=== PATIENT | female | born 1985 | race Caucasian/White ===

== ENCOUNTER 2020-12-31 04:07 | Inpatient (IN) | payer OTHER ==
[2020-12-31] VITALS (21 sets, daily range): BP systolic 108–164; BP diastolic 40–85; PULSE 64–104; TEMP 97–98.7
[~2020-12-31] VITALS: Ht 165.2 cm; Wt 86.4 kg
[~2020-12-31 04:07] MED LIST: MOTRIN 600600 MG/TAB PO; PERCOCET 325 MG1 TA2 PO; PRENATAL1 TA1 PO; ZOVIRAX 200MG200 MG PO
--- NOTE | 2020-12-31 04:07 | NUR ---
0407 G6L2 39.1 WEEKS TO LR4 WITH C/O SROM AT 0100 AND MILD TO MOD CONTRACTIONS. SCHEDULED FOR A REPEAT C/SECT TOMORROW. EFM ON. ADM ASSESSMENT COMPLETED. 0435 SVE DONE WITH NO AMNIOTIC FLUID NOTED. NEG AMNIOTRACE. CERVIX POSTERIOR AND NOT DILATED. PINKISH, MUCOUSY DISCHARGE NOTED ON GLOVE AFTER EXAM. PT STATES WORN A MINI PAD IN. MINIPAD HAS QUARTER SIZE MUCOUSY PINK DISCHARGE ON IT AND TEST NEG WITH AMNIOTRACE. CONTRACTIONS NOTED EVERY 3-5 MINUTES. STATES FEELS TIGHTENING BUT ARE BEGINNING TO HAVE SOME MENSTRUAL LIKE CRAMPING WITH THEM.
[2020-12-31] MEDS ORDERED: PROBIOTIC FORMU1 CAP PO (04:24)
--- NOTE | 2020-12-31 06:00 | NUR ---
0600 LEAKS SM AMOUNT CL/PINKISH FLUID. TEST NEG ON AMNIOTRACE. SVE /-2. STATES CONTRACTIONS ARE TIGHT BUT NOT ANY HARDER AT THIS TIME. DR MEDINA NOTIFIED. ORDER TO ADMIT AND PLAN C/SECT FOR 0900.
[2020-12-31 06:50] LABS: BASO % 0.2 % (0.0-2.0); EOS % 0.2 % (0-4.0); GRAN # 9.2 (1.4-6.5); GRAN % 75.8 % (42.2-75.2); LYMPH % 16.3 % (20.0-51.0); MEAN CELL VOLUME 88 fl (80.0-100.0); MEAN CORPUSCULAR HEMOGLOBIN 29 pg (27.0-31.0); MEAN CORPUSCULAR HGB CONC 33 g/dl (33.0-37.0); MONO # 0.8 (0.1-0.6); MONO % 6.4 % (1.7-9.3); PLATELET COUNT 196 K/mm3 (130-400); RED BLOOD COUNT 4.16 M/mm3 (4.10-5.30); REDCELL DISTRIBUTION WIDTH-CV 14.3 % (11.5-14.5)
[2020-12-31 06:51] LABS: HEMATOCRIT 36.4 % (37.0-47.0)
--- NOTE | 2020-12-31 07:00 | NUR ---
PT HAVING INCREASING PAIN WITH CONTRACTIONS AND THEY ARE COMING MORE FREQUENTLY. PHONED DR MEDINA AT 0641 INFORMING HER PT IS INCREASING UNCOMFORTABLE AND THIS RN FEELS THE NEEDS TO BE MOVED UP RATHER THAN WAITING FOR THE SCHEDULED 0730 TO BE COMPLETED BEFORE ALISON HAS HER . AGREES AND IS ON HER WAY TO THE HOSPITAL. DR HERE AT 0650. PT PREPPED FOR SURGERY. IV STARTED IN LEFT HAND AND BOLUS INFUSING. AMBULATES TO OPERATING ROOM AT 0700. FHT'S WITH MODERATE VARIABILITY AND ACCELS.
--- NOTE | 2020-12-31 07:30 | NUR ---
PT AMBULATES TO OR AT 0702 WITH AND THIS RN. PT SITS ON EDGE OF BED FOR SPINAL PLACEMENT BY RIKI COLLAZO. SPINAL DONE AND PT REPOSITIONED LYING DOWN WITH BLANKET WEDGE UNDER RIGHT HIP. CHERRY PLACED. ABDOMEN PREPPED. DR MEDINA AND DR WALKER PERFORMED WITH DELIVERY OF MALE AT 0719. EXPRESSED DELIVERY OF PLACENTA AT 0720.
--- NOTE | 2020-12-31 07:55 | NUR ---
PT TO PACU AFTER DISCHARGE FROM OPERATING ROOM. AWAKE AND ALERT. DENIES PAIN. FUNDUS FIRM WITH MINIMAL BLEEDING OBSERVED. ASSESSMENT COMPLETED.
--- NOTE | 2020-12-31 08:35 | NUR ---
PT TO ROOM AFTER DISCHARGE FROM PACU. AWAKE AND ALERT. FUNDUS FIRM WITH MINIMAL BLEEDING. PT REPORTING NO PAIN AT THIS TIME. WATER GIVEN. PT HOLDING BABY. IN ROOM. PLAN OF CARE REVIEWED.
--- NOTE | 2020-12-31 18:50 | NUR ---
Report recieved. at this time. Requested percocet. Updated whiteboard and reviewed POC.
[2021-01-01 01:15] VITALS: BP 114/71; PULSE 79; TEMP 98
[2021-01-01 05:00] VITALS: BP 114/71; PULSE 80; TEMP 98.3
[2021-01-01 07:13] VITALS: BP 106/56; PULSE 80; TEMP 98.1
[2021-01-01 07:17] LABS: HEMATOCRIT 30.1 % (37.0-47.0); HEMOGLOBIN 9.9 g/dl (12.5-16.0)
--- NOTE | 2021-01-01 09:11 | NUR ---
Initial visit; Parents thanked Algebra Teacher for offering congratulations and God;s phuong for the of their son. Algebra Teacher thanked family for choosing [facility].
[2021-01-01 19:12] VITALS: BP 117/79; PULSE 96; TEMP 98
[2021-01-02 07:00] VITALS: BP 116/78; PULSE 76; TEMP 98.2
[2021-01-02] MEDS ORDERED: IBU600 MG PO (08:52)
[2021-01-02] MEDS ORDERED: PERCOCET 325 MG1 TA2 PO (08:52)
== END 2021-01-02 14:32 | disposition home or self-care (01) | DRG 788 ==
LOC: LDRO 04:07 → OB 06:20 → LDR 06:20 → OB 08:50
PROVIDERS: ADMIT Obstetrics & Gynecology
PROC: 10D00Z1 Extraction of Products of Conception, Low, Open Approach (ICD-10-PCS; principal; 2020-12-31)
DX: O34.211 Maternal care for low transverse scar from previous cesarean delivery (principal); Z3A.39 39 weeks gestation of pregnancy; Z37.0 Single live birth
CPT/HCPCS: J0690; J1100; J1885; J2405; J2590; J2765; J7120